=== PATIENT | female | born 1985 | race Asian ===

== ENCOUNTER 2018-11-03 18:57 | Emergency (ER) | payer BC, OTHER ==
[2018-11-03] MEDS: ONDANSETRON (ODT) 4 MG TAB ODT (20:10)
[2018-11-03] MEDS: ACETAMINOPHEN 325 MG TAB PO (20:11)
== END 2018-11-03 20:32 | disposition home or self-care (01) ==
LOC: FTE 18:57
DX: O26.891 Other specified pregnancy related conditions, first trimester (principal); R40.2142 Coma scale, eyes open, spontaneous, at arrival to emergency department; R40.2362 Coma scale, best motor response, obeys commands, at arrival to emergency department; R40.2252 Coma scale, best verbal response, oriented, at arrival to emergency department; R51 Headache; J45.909 Unspecified asthma, uncomplicated; O99.511 Diseases of the respiratory system complicating pregnancy, first trimester; Z3A.12 12 weeks gestation of pregnancy
CPT/HCPCS: 99283; Z7502